=== PATIENT | male | born 1980 ===

== ENCOUNTER 2022-06-24 17:38 | Outpatient (CLI) | payer OTHER | END 2022-06-24 17:39 | disposition short-term general hospital (02) | LOC: EMS 17:38 | DX: S09.90XA Unspecified injury of head, initial encounter (principal); M54.2 Cervicalgia; R41.82 Altered mental status, unspecified; I10 Essential (primary) hypertension; M54.9 Dorsalgia, unspecified; M25.561 Pain in right knee; V49.40XA Driver injured in collision with unspecified motor vehicles in traffic accident, initial encounter; Y92.413 State road as the place of occurrence of the external cause | CPT/HCPCS: A0425; A0429 ==